=== PATIENT | male | born 1940 | race Caucasian/White ===

== ENCOUNTER → 2020-02-16 | Outpatient (CLI) | payer MEDICARE, OTHER ==
--- NOTE | 2020-02-16 23:14 | RAD ---
Ultrasound soft tissue left groin nonvascular HISTORY: Left groin surgery for hernia one half months ago now has nontender lump in left groin Sonographic examination of the left groin was performed and multiple static images were obtained. There is no hernia identified. FINDINGS: There is a nonvascular heterogeneous mass in the left groin that measures 3.2 x 3.5 x 2.6 cm. IMPRESSION: Heterogeneous nonvascular mass corresponding with the palpable abnormality. This could be a hematoma or fat necrosis. Consider short-term follow-up ultrasound. If the palpable abnormality becomes larger ultrasound-guided biopsy could be performed. Electronically signed by: Meet Allen III, MD (02/16/2020 11:10 PM) [facility]
== END ==
LOC: US 16:07
PROVIDERS: ATTEND Surgery
DX: R19.09 Other intra-abdominal and pelvic swelling, mass and lump (principal)
CPT/HCPCS: 76881